=== PATIENT | male | born 1940 | race Caucasian/White ===

== ENCOUNTER → 2017-09-22 | Outpatient (CLI) | payer OTHER ==
[~2017-09-22] MED LIST: ALLOPURINOL 30300 M1 PO; AMITRIPTYLINE H25 M2 PO; AMLODIPINE BESY10 MG PO; ANDRODERM1 EAC1 TD; ASPIRIN325 PO; ASPIRIN81 M2 PO; ATENOLOL 100MG100 MG PO; BACTRIM DS TAB1 EACH PO; CALCIUM PO; CENTRUM SILVER1 EAC4 PO; CHLORTHALIDONE25 MG PO; CO Q-10100 MG PO; COZAAR 50 MG TA50 M2 PO; DEPO-TESTO100 MG/1 M IM; DESYREL100 MG PO; DIABETA PO; DIOVAN160 MG PO; ECHINACEA EXTR125 MG PO; FEXOFENADINE H180 MG PO; FLEXERIL PO; FOSAMAX 70 MG T70 MG PO; GINKGO BILOBA120 MG PO; GLUCOPHAGE1000 MG PO; GLUCOSAMINE HC500 MG PO; HYDROCODONE-AP1 EAC6 PO; KEFLEX500 M1 PO; KLOR-CON 1010 MEQ PO; LANTUS SC; LANTUS SUBQ; MAGNES PO; MEDROLDOSEPACK PO; MELATONIN5 M1 PO; NORTRIPTYLINE H50 MG PO; OAT BRAN PO; OMEGA-3 FISH O1 EAC3 PO; OSTERA TABLET1 EACH PO; OXYCODONE HCL 55 MG PO; OXYCODONE HCL5 M1 PO; POTASSIUM20 PO; PRAVASTATIN SOD40 MG PO; PRILOSEC OTC20 MG PO; PROAIR HFA8.5 GM INH; SAW PALMETTO500 MG PO; SILDENAFIL20 MG PO; SULINDAC 150 M150 MG PO; TAMSULOSIN HCL0.4 MG PO; TEKTURNA300 MG PO; TENEX1 MG PO; TIZANIDINE HCL4 M1 PO; TRANDATE 200 M200 M1 PO; VIAGRA50 MG PO; VITAMIN D3400 UNIT PO; VITAMIN E400 UNIT PO; XARELTO10 MG PO; ZANTAC 150MG T150 MG PO
== END ==
LOC: M.RAD 12:59
DX: M81.0 Age-related osteoporosis without current pathological fracture (principal); M85.89 Other specified disorders of bone density and structure, multiple sites

== ENCOUNTER 2017-11-15 08:46 | Inpatient (IN) | payer OTHER ==
[~2017-11-15] VITALS: Ht 170.2 cm; Wt 86.2 kg
[~2017-11-15 08:46] MED LIST changes: -BACTRIM DS TAB1 EACH PO; -HYDROCODONE-AP1 EAC6 PO; -KEFLEX500 M1 PO; -MEDROLDOSEPACK PO; -OXYCODONE HCL5 M1 PO; -PROAIR HFA8.5 GM INH
[2017-11-17 13:38] LABS: HEMATOCRIT 47.5 % (42.0-52.0); HEMOGLOBIN 15.7 gm/dL (14.0-18.0); MCH 30.9 pg (26.0-34.0); MCV 93.7 fL (80.0-100.0); MPV 9.4 fl. (7.2-11.1); NUCLEATED RBCS 0 /100WBC; PLATELET COUNT* 241 thou/uL (150-400); RBC 5.07 mil/uL (4.50-6.00); RDW-CV 15.8 % (10.5-14.5)
[2017-11-17 13:50] LABS: ALBUMIN 3.3 g/dL (3.4-5.0); CALCIUM 8.8 mg/dL (8.5-10.1); CREATININE 0.9 mg/dL (0.6-1.3); POTASSIUM 3.5 mmol/L (3.5-5.1); TOTAL BILIRUBIN 0.5 mg/dL (<0.1-1.0); TOTAL PROTEIN 6.7 g/dL (6.4-8.2)
[2017-11-17 14:07] LABS: ABSOLUTE BASOPHILS 0.1 thou/uL (0.0-0.2); ABSOLUTE EOSINOPHILS 0.3 thou/uL (0.0-0.7); ABSOLUTE LYMPHOCYTES 1.5 thou/uL (0.8-5.3); ABSOLUTE MONOCYTES 0.6 thou/uL (0.0-1.2); ABSOLUTE NEUTROPHILS 4.6 thou/uL (1.6-8.1); PLATELET ESTIMATE ADEQUATE
[2017-11-17 14:45] LABS: ESR (SEDRATE) 1 mm/hr (0-20)
--- NOTE | 2017-11-17 15:18 | EKG ---
[place] [address] ELECTROCARDIOGRAM REPORT Name: ECHO REGALADO Room: PRE IN [facility]#: [id number] Admission: Attend Phys: Andrea Modi Discharge: Date of : 44 Report #: [id number] THIS REPORT FOR: //name// [facility] Test Date: 2017-11-17 Test Time: 13:43:15 Pat Name: ECHO REGALADO Department: Room: Gender: M Strategic Planning Analyst: : 1940 Requested By: Gopal Flores Order Number: [id number] Reading MD: Maximo Yuen Measurements Intervals [place] Rate: 68 P: 0 [place]: 243 QRS: -8 QRSD: 89 T: 49 QT: 370 QTc: 394 Interpretive Statements Sinus rhythm Prolonged [place] interval Abnormal R-wave progression, early transition Inferior infarct, old Compared to ECG 02/24/2017 09:37:26 No significant changes Electronically Signed On 11-17-2017 15:18:12 CDT by Maximo Yuen [email or web address] <ELECTRONICALLY SIGNED> By: Maximo Yuen MD, [facility] 11/17/17 1518 1343 1343 Maximo Yuen MD, [facility] /EPI
[2017-11-18 02:07] LABS: GLYCOHEMOGLOBIN (HGB A1C) 7.6 % (4.8-5.6)
[2017-11-30 06:41] VITALS: BP 167/83
[2017-11-30 14:06] VITALS: BP 176/60
[2017-11-30 16:03] VITALS: BP 155/76
--- NOTE | 2017-11-30 16:46 | NUR ---
ASSUMED CARE OF PATIENT AFTER TRANSFER FROM PACU AT 1420. ALERT AND ORIENTED X4. ASSESSMENT COMPLETED AND CHARTED. VSS ON . MINIMAL COMPLAINTS OF PAIN WHICH HAS BEEN MANAGED WITH ORAL PAIN MEDICATION. PATIENT IS UP WITH 1 AND USES GAIT BELT AND WALKER TO WALK TO THE BATHROOM. RESTING COMFORTABLY IN BED AT THIS TIME. HOURLY ROUNDS MAINTAINED, CALL LIGHT WITHIN REACH, NURSING WILL CONTINUE TO MONITOR.
[2017-11-30 20:00] VITALS: BP 169/90
[2017-12-01] VITALS: BP 173/92
[2017-12-01 03:57] VITALS: BP 156/76
[2017-12-01 04:01] LABS: HEMATOCRIT 39.1 % (42.0-52.0); HEMOGLOBIN 13.1 gm/dL (14.0-18.0)
--- NOTE | 2017-12-01 05:13 | NUR ---
PATIENT ORIENTED X4. UP WITH ASSIST X1. DRESSING TO LEFT KNEE CLEAN, DRY AND INTACT. VITALS STABLE ON ROOM AIR. CPAP ON AT HS. DENIES NEED FOR PAIN MEDICATION. TOLERATING DIET. WILL CONTINUE TO MONITOR.
[2017-12-01 09:52] VITALS: BP 165/87
[2017-12-01 13:46] VITALS: BP 165/87
--- NOTE | 2017-12-01 13:53 | NUR ---
INITIAL ASSESSMENT: Pt evaluated for d/c planning needs. Reviewed chart and spoke with nurse and pt. Pt is alert and oriented. Pt lives alone in house and was independent with ADL's prior to admission. Pt had surgery on his right knee in March at [facility]. Pt was d/c home with [facility] and then went to oupatient physical therapy. Pt remains active in the community and is still driving. Pt has walker, cane, CPAP. Pt had [facility] after previous hospitalization. Pt was given choices, and wants to use [facility] again. Notified [facility] of planned d/c on Tuesday. Will fax orders when available. Pt has 2 daughters who are nurses, and they plan to take turns staying with him on d/c from hospital. Will remain available to assist as needed.
--- NOTE | 2017-12-01 14:23 | NUR ---
ORDER RECEIVED FOR "OT EVAL AND TREAT". PLAN TO DEFER TO PHYSICAL THERAPY AT THIS TIME.
[2017-12-01 14:32] VITALS: BP 165/87
[2017-12-01 17:09] VITALS: BP 151/80
[2017-12-01] MEDS ORDERED: HYDROCODONE-AP1 EAC6 PO (17:59)
[2017-12-01] MEDS ORDERED: OXYCODONE HCL5 M1 PO (18:04)
--- NOTE | 2017-12-01 18:59 | NUR ---
ASSUMED CARE OF PATIENT AFTER MORNING REPORT. ALERT AND ORIENTED X4. ASSESSMENT COMPLETED AND CHARTED. VSS ON ROOM AIR. PATIENT HAD MINIMAL COMPLAINTS OF PAIN WHICH WAS MANAGED WITH PAIN MEDICATION. PATIENT WORKLED VERY WELL WITH THERAPY TODAY. PATIENT DISCHARGED AT 1800 TO HOME [facility]. ALL PERSONAL BELONGS, PRESCRIPTIONS AND DISCHARGE INFORMATION SENT WITH PATIENT UPON DISCHARGE.
--- NOTE | 2017-12-02 17:34 | OP ---
[facility] [place] [address] OPERATIVE REPORT Name: ECHO REGALADO Room: [address]#: [id number] Admission: 11/30/17 Attend Phys: Andrea Modi Discharge: 12/01/17 Date of : 44 Report #: [id number] THIS REPORT FOR: //name// CC: Gopal Nolasco DICTATED BY: Darin Acevedo DATE OF SERVICE: 11/30/2017 PREOPERATIVE DIAGNOSIS: Advanced degenerative joint disease, left knee. POSTOPERATIVE DIAGNOSIS: Advanced degenerative joint disease, left knee. PROCEDURE: Left total knee arthroplasty utilizing the following components. IMPLANTS: 1. Selwyn Persona total knee arthroplasty system with a size 8 left CR femoral component. 2. A size F tibial component. 3. A size 32 mm tri-peg patella. 4. 11 mm medial congruent vitamin E polyethylene insert. 5. Two bags of bone cement. SURGEON: Gopal Flores DO COMPLIANCE ATTORNEY: Darin Acevedo DO ANESTHESIA: General with adductor canal block. ESTIMATED BLOOD LOSS: 50 mL. SPECIMENS: None. COMPLICATIONS: None. DRAINS: None. CONDITION: The patient is stable to PACU. PREOPERATIVE ANTIBIOTICS: 2 grams Ancef IV prior to incision. TOURNIQUET TIME: Less than 30 minutes at 290 mmHg. [facility] [place] [address] OPERATIVE REPORT Name: ECHO REGALADO Room: [address]#: [id number] Admission: 11/30/17 Attend Phys: Andrea Modi Discharge: 12/01/17 Date of : 44 Report #: [id number] INDICATIONS: The patient is a 77-year-old male with longstanding left knee pain. He has tried and failed nonoperative care in the form of oral anti-inflammatories, activity modification, physical exercise regimen, and intraarticular injections. X-rays revealed loss of medial joint space with tricompartmental arthritic change with joint space narrowing, osteophytic lipping and subchondral sclerosis. After discussing the risks, benefits, complications, alternatives and indications to left total knee arthroplasty including but not limited to bleeding, infection, neurovascular injury, continued pain, need for further surgery, DVT, PE and inherent risks of anesthesia, he is willing to proceed. Consent is available on the chart. DESCRIPTION OF PROCEDURE: The patient was seen in preoperative holding area and operative site initialed by the surgeon. He was brought back to operative suite, placed on a well-padded table in supine position. General anesthesia was induced. A well-padded tourniquet was placed in the left upper thigh and left lower extremity sterilely prepped and draped in normal fashion. Timeout was performed in usual fashion and all attendants were in agreement. A 10 blade scalpel was used to make a midline incision over the left knee through the skin and subcutaneous tissue. A new knife blade was then used to make a medial parapatellar arthrotomy and the patella was everted. Electrocautery was used for hemostasis. An anterior horn of the medial and lateral meniscus was excised and Hoffa's fat pad was trimmed. Intramedullary reamer was then used to access the femoral canal and a distal femoral cutting block was assembled and pinned into place, taking an extra 1 mm resection due to the patient's preoperative extension lag. Block was pinned into place and oscillating saw used to perform distal femoral cut through the captured cutting block in the standard fashion. Excess bone was removed. Attention was then turned to the tibia where extramedullary guide was aligned with the medial third of the tibial tubercle, tibial crest and the middle of talus. Standard 10 mm of resection was measured from the high lateral tibial plateau. The block was pinned into place and oscillating saw used to perform proximal tibial cut through the captured cutting block in the standard fashion. Excess bone was removed. The distal femur was then sized to a size 8 and the guide was drilled in 3 degrees external rotation with regard to the posterior condylar access. A 4-in-1 cutting block was pinned into place and checked for appropriate resection level. An oscillating saw was used to make 4-in-1 cuts through the captured cutting block in the standard fashion. Excess bone was removed. A trial tibial component was then pinned into place and a trial femoral component was impacted into place. A 10 mm spacer was then placed and the knee brought through full range of motion. There was a very mild increase in laxity with varus and valgus testing, but this was symmetric. He had good flexion with this. Attention was then turned to the patella where electrocautery was used to perform neurolysis of the patella and reamer was used to resect the patella as well. Edges were trimmed with oscillating saw in a free hand technique. The patella was sized and 3 peg holes drilled through the guide. Trial patellar button was placed, the knee brought through full range of motion, showing adequate rotation of the tibia as well as [address] [address] OPERATIVE REPORT Name: ECHO REGALADO Room: [address] IN [facility].#: [id number] Admission: 11/30/17 Attend Phys: Andrea Modi Discharge: 12/01/17 Date of : 44 Report #: [id number] tracking of the patella. An Esmarch was used to exsanguinate the lower extremity and the tourniquet inflated 290 mmHg. A proximal tibia was prepared with a reamer and cruciform punch in the standard fashion. Trial implants were removed and the knee was thoroughly irrigated with normal saline via pulsatile lavage and dried. Cement was mixed on the back table, applied to the final components and applied to the bone. Components were then impacted into place and excess cement was removed. A 12 mm spacer was used for compression while the cement was hardening. Clamp was used on the patella. After allowing adequate time for the cement to harden, a trial insert was used and found to be most stable with an 11 mm trial. This was selected for final. Wound was thoroughly irrigated with normal saline and final 11 mm polyethylene spacer was placed and secured. Betadine was added to the joint and allowed to sit for 3 minutes. This was rinsed with normal saline and topical TXA was placed and allowed to congeal over 3 minutes and the tourniquet was deflated for a total tourniquet time less than 30 minutes. Hemostasis was achieved with electrocautery. The wound was thoroughly irrigated and brought to full range of motion, found to be stable. A medial parapatellar arthrotomy was closed with #1 Vicryl in [id number] fashion and reinforced with a #2 Tycron over the superior medial aspect. The skin edges were prepped with the ChloraPrep and 2-0 Monocryl was used to close the subcutaneous tissue in simple inverted interrupted fashion followed by running 3-0 Stratafix on the skin and skin glue. Dressings were placed in the form of Mepilex AG dressing and LINWOOD hose. The patient was awoken from general anesthesia and brought to PACU in stable fashion. He tolerated the procedure well. Dr. Flores was present throughout all critical aspects of the surgery. <ELECTRONICALLY SIGNED> By: Gopal Flores DO 12/02/17 1734 0937 [id number] Flores DO /ana
== END 2017-12-01 18:00 | disposition home health service (06) | DRG 470 ==
LOC: M.PRE 08:46 → M.TBA 11-30 05:55 → M.PRE 11-30 08:51 → M.ORTHSURG 11-30 13:02
PROVIDERS: Orthopaedic Surgery; ADMIT Internal Medicine
PROC: 0SRD069 Replacement of Left Knee Joint with Oxidized Zirconium on Polyethylene Synthetic Substitute, Cemented, Open Approach (ICD-10-PCS; principal; 2017-11-30)
DX: M17.12 Unilateral primary osteoarthritis, left knee (principal); J30.2 Other seasonal allergic rhinitis; I10 Essential (primary) hypertension; M81.0 Age-related osteoporosis without current pathological fracture; M10.9 Gout, unspecified; E78.5 Hyperlipidemia, unspecified; E11.65 Type 2 diabetes mellitus with hyperglycemia; K21.9 Gastro-esophageal reflux disease without esophagitis; Z83.3 Family history of diabetes mellitus; Z82.49 Family history of ischemic heart disease and other diseases of the circulatory system; Z88.8 Allergy status to other drugs, medicaments and biological substances; Z90.49 Acquired absence of other specified parts of digestive tract

== ENCOUNTER → 2017-12-09 | Outpatient (CLI) | payer OTHER ==
[~2017-12-09] MED LIST changes: +BACTRIM DS TAB1 EACH PO; +HYDROCODONE-AP1 EAC6 PO; +KEFLEX500 M1 PO; +MEDROLDOSEPACK PO; +OXYCODONE HCL5 M1 PO; +PROAIR HFA8.5 GM INH
== END ==
LOC: M.ULTRA 09:00
DX: M79.662 Pain in left lower leg (principal); M79.89 Other specified soft tissue disorders

== ENCOUNTER 2017-12-12 10:16 | Emergency (ER) | payer OTHER ==
[~2017-12-12] VITALS: Ht 167.6 cm; Wt 88.5 kg
[~2017-12-12 10:16] MED LIST changes: -BACTRIM DS TAB1 EACH PO; -KEFLEX500 M1 PO; -MEDROLDOSEPACK PO; -PROAIR HFA8.5 GM INH
[2017-12-12 10:55] LABS: HEMATOCRIT 35.3 % (42.0-52.0); HEMOGLOBIN 11.8 gm/dL (14.0-18.0); MCH 31.7 pg (26.0-34.0); MCHC 33.5 g/dL (28.0-37.0); MCV 94.8 fL (80.0-100.0); MPV 8.5 fl. (7.2-11.1); NUCLEATED RBCS 0 /100WBC; PLATELET COUNT* 461 thou/uL (150-400); RBC 3.72 mil/uL (4.50-6.00); RDW-CV 16.2 % (10.5-14.5)
[2017-12-12 11:04] LABS: ANION GAP 7 mmol/L (7-16); BUN 19 mg/dL (7-18); CALCIUM 9.2 mg/dL (8.5-10.1); CHLORIDE 97 mmol/L (98-107); CO2 33 mmol/L (21-32); CREATININE 0.8 mg/dL (0.6-1.3); GLUCOSE 212 mg/dL (70-99); POTASSIUM 3.8 mmol/L (3.5-5.1); SODIUM 137 mmol/L (136-145)
[2017-12-12 11:11] LABS: ALBUMIN 2.8 g/dL (3.4-5.0); ALKALINE PHOSPHATASE 140 U/L (46-116); SGOT 23 U/L (15-37); SGPT 26 U/L (30-65); TOTAL BILIRUBIN 1.1 mg/dL (<0.1-1.0); TOTAL PROTEIN 6.6 g/dL (6.4-8.2); TROPONIN-I LEVEL <0.06 ng/mL (<0.06)
[2017-12-12 11:22] LABS: ABSOLUTE BASOPHILS 0.1 thou/uL (0.0-0.2); ABSOLUTE EOSINOPHILS 0.8 thou/uL (0.0-0.7); ABSOLUTE LYMPHOCYTES 1.3 thou/uL (0.8-5.3); ABSOLUTE MONOCYTES 0.8 thou/uL (0.0-1.2)
[2017-12-12 11:23] LABS: PLATELET ESTIMATE ADEQUATE
[2017-12-12] MEDS ORDERED: PROAIR HFA8.5 GM INH (12:23)
[2017-12-12] MEDS ORDERED: BACTRIM DS TAB1 EACH PO (12:23)
[2017-12-12] MEDS ORDERED: KEFLEX500 M1 PO (12:23)
[2017-12-12] MEDS ORDERED: MEDROLDOSEPACK PO (12:32)
[2017-12-12] MEDS ORDERED: HYDROCODONE-AP1 EAC6 PO (12:43)
[2017-12-12 13:28] VITALS: BP 169/81
--- NOTE | 2017-12-12 16:12 | EKG ---
[place] [address] ELECTROCARDIOGRAM REPORT Name: ECHO REGALADO Room: [facility]#: [id number] Admission: 12/12/17 Attend Phys: Discharge: 12/12/17 Date of : 44 Report #: [id number] THIS REPORT FOR: //name// [facility] ED Test Date: 2017-12-12 Test Time: 10:41:08 Pat Name: ECHO REGALADO Department: Room: Gender: Director Of Quality Control: Royer GALDAMEZ : 1940 Requested By: Hannah Johnson Order Number: [id number] MD: Echo Sapp Measurements Intervals [place] Rate: 82 P: 3 ME: 200 QRS: -11 QRSD: 88 T: 15 QT: 367 QTc: 429 Interpretive Statements Sinus rhythm Abnormal R-wave progression, early transition Left ventricular hypertrophy Inferior infarct, old Compared to ECG 11/17/2017 13:43:15 Left ventricular hypertrophy now present First degree AV block no longer present Myocardial infarct finding still present Electronically Signed On 12-12-2017 16:12:09 CDT by Echo Sapp [email or web address] <ELECTRONICALLY SIGNED> By: Echo Sapp MD, FAC 12/12/17 1612 1041 1041 Echo Sapp MD, [facility] /EPI
== END 2017-12-12 13:28 | disposition still patient (30) ==
LOC: M.ERS 10:16
PROVIDERS: Physician Assistant
DX: J20.9 Acute bronchitis, unspecified (principal); R21 Rash and other nonspecific skin eruption; I10 Essential (primary) hypertension; E78.5 Hyperlipidemia, unspecified; K21.9 Gastro-esophageal reflux disease without esophagitis; Z90.49 Acquired absence of other specified parts of digestive tract

== ENCOUNTER → 2018-02-08 | Outpatient (CLI) | payer OTHER ==
[~2018-02-08] MED LIST changes: +BACTRIM DS TAB1 EACH PO; +KEFLEX500 M1 PO; +MEDROLDOSEPACK PO; +PROAIR HFA8.5 GM INH
== END ==
LOC: M.ULTRA 15:26
DX: M79.89 Other specified soft tissue disorders (principal); M79.662 Pain in left lower leg; I10 Essential (primary) hypertension; K21.9 Gastro-esophageal reflux disease without esophagitis; E78.5 Hyperlipidemia, unspecified; M81.0 Age-related osteoporosis without current pathological fracture; M19.90 Unspecified osteoarthritis, unspecified site; Z96.652 Presence of left artificial knee joint

== ENCOUNTER → 2018-07-14 | Outpatient (CLI) | payer OTHER | LOC: M.ULTRA 07-11 13:30 | DX: R22.9 Localized swelling, mass and lump, unspecified (principal) ==

== ENCOUNTER → 2020-01-18 | Outpatient (CLI) | payer OTHER | LOC: M.ULTRA 01-09 14:48 | PROVIDERS: ATTEND Registered Nurse Diabetes Educator | DX: I65.23 Occlusion and stenosis of bilateral carotid arteries (principal); E11.29 Type 2 diabetes mellitus with other diabetic kidney complication; R80.9 Proteinuria, unspecified; I12.9 Hypertensive chronic kidney disease with stage 1 through stage 4 chronic kidney disease, or unspecified chronic kidney disease; E55.9 Vitamin D deficiency, unspecified; M85.88 Other specified disorders of bone density and structure, other site; Z79.4 Long term (current) use of insulin ==

== ENCOUNTER 2021-05-06 12:33 | Emergency (ER) | payer OTHER ==
[~2021-05-06] VITALS: Ht 162.6 cm; Wt 90.7 kg
[2021-05-06] MEDS ORDERED: CARVEDILOL25 MG PO (13:00)
--- NOTE | 2021-05-06 13:18 | EKG ---
[place] [address] ELECTROCARDIOGRAM REPORT Name: DEVAN REGALADO Room: [facility]#: [id number] Admission: 05/06/21 Attend Phys: Discharge: Date of : 44 Date of Service: 05/06/21 1302 Report #: [id number] THIS REPORT FOR: //name// [facility] ED Test Date: 2021-05-06 Test Time: 13:02:25 Pat Name: DEVAN REGALADO Department: Room: Gender: Audiovisual Production Specialist: [facility] : 1940 Requested By: Romero Ugalde Order Number: [id number] MD: Devan Sapp Measurements Intervals [place] Rate: 58 P: 10 VT: 210 QRS: -2 QRSD: 91 T: 38 QT: 409 QTc: 402 Interpretive Statements Sinus rhythm Compared to ECG 12/12/2017 10:41:08 Left ventricular hypertrophy no longer present Myocardial infarct finding no longer present Electronically Signed On 05-06-2021 13:17:44 STRUCTURAL METAL WORKER by Devan Sapp [email or web address] <ELECTRONICALLY SIGNED> By: Devan Sapp MD, [facility] 05/06/21 1317 1302 1302 Devan Sapp MD, [facility] /EPI
[2021-05-06 13:42] LABS: ABSOLUTE BASOPHILS 0.1 thou/uL (0.0-0.2); ABSOLUTE EOSINOPHILS 0.4 thou/uL (0.0-0.7); ABSOLUTE LYMPHOCYTES 1.3 thou/uL (0.8-5.3); ABSOLUTE NEUTROPHILS 4.8 thou/uL (1.6-8.1); BASOPHILS 1.3 %; EOSINOPHILS 5.8 %; HEMATOCRIT 36.1 % (42.0-52.0); HEMOGLOBIN 11.5 gm/dL (14.0-18.0); LYMPHOCYTES 17.4 %; MCV 84.4 fL (80.0-100.0); MPV 9.9 fl. (7.2-11.1); NUCLEATED RBCS 0 /100WBC; PLATELET COUNT* 236 thou/uL (150-400); POLYS 62.5 %; RBC 4.27 mil/uL (4.50-6.00); RDW-CV 17.3 % (10.5-14.5); WBC 7.7 thou/uL (4.0-11.0)
[2021-05-06 13:53] LABS: CALCIUM 8.6 mg/dL (8.5-10.1); CREATININE 0.9 mg/dL (0.6-1.3); POTASSIUM 3.8 mmol/L (3.5-5.1)
[2021-05-06 14:04] LABS: ALBUMIN 3.1 g/dL (3.4-5.0); TOTAL BILIRUBIN 0.5 mg/dL (<0.1-1.0)
[2021-05-06] MEDS ORDERED: LASIX 20 MG TAB20 MG PO ×2 (15:18→21:07)
[2021-05-06] MEDS ORDERED: PREDNISONE 20 M20 MG PO ×2 (15:18→21:07)
[2021-05-06] MEDS ORDERED: PROAIR HFA8.5 GM INH ×2 (15:18→21:07)
[2021-05-06] MEDS ORDERED: ZPAK PO ×2 (17:08→21:07)
[2021-05-06 17:18] VITALS: BP 141/70
== END 2021-05-06 17:18 | disposition home or self-care (01) ==
LOC: M.ERS 12:33
PROVIDERS: Physician Assistant
DX: R06.00 Dyspnea, unspecified (principal); Z20.822 Contact with and (suspected) exposure to COVID-19; R60.0 Localized edema; R06.2 Wheezing; M79.89 Other specified soft tissue disorders; I10 Essential (primary) hypertension; M81.0 Age-related osteoporosis without current pathological fracture; E78.5 Hyperlipidemia, unspecified; M19.90 Unspecified osteoarthritis, unspecified site; K21.9 Gastro-esophageal reflux disease without esophagitis; Z90.89 Acquired absence of other organs; Z98.890 Other specified postprocedural states; Z90.49 Acquired absence of other specified parts of digestive tract; Z91.048 Other nonmedicinal substance allergy status; Z96.653 Presence of artificial knee joint, bilateral; Z79.899 Other long term (current) drug therapy; Z79.2 Long term (current) use of antibiotics; Z79.4 Long term (current) use of insulin; Z79.82 Long term (current) use of aspirin